=== PATIENT | female | born 1990 | race Caucasian/White ===

== ENCOUNTER 2024-03-16 16:07 | Emergency (ER) | payer BC, SELFPAY ==
[2024-03-16 16:24] VITALS: BP 155/94
[2024-03-16 18:25] VITALS: BP 119/83
[2024-03-16 18:34] LABS: % Basophils 0.5 % (0-2); % Eosinophils 0.3 % (0-6); % Immature Granulocytes 0.4 % (0-0.5); % Lymphocytes 22.8 % (20.5-51.1); % Monocytes 4.9 % (1.7-9.3); % Neutrophils 71.1 % (42.2-75.2); Absolute Basophils 0.1 10^3/uL (0-0.2); Absolute Immature Granulocytes 0.1 10^3/uL (0-0.05); Absolute Lymphocytes 2.8 10^3/uL (1.2-3.4); Absolute Monocytes 0.6 10^3/uL (0.1-0.6); Absolute Neutrophils 8.7 10^3/uL (1.4-6.5); Hematocrit 36.3 % (37.0-47.0); Hemoglobin 12.7 g/dL (12.0-16.0); Mean Corpuscular Volume 82.9 fL (81.0-99.0); Mean Platelet Volume 9.5 fL (7.4-10.4); Nucleated Red Blood Cells % 0 %; Platelet Count 351 10^3/uL (130-400); Red Blood Cell Count 4.38 10^6/uL (4.20-5.40); Red Cell Dist. Width 13.1 % (11.5-14.5); White Blood Cell Count 12.3 10^3/uL (4.8-10.8)
[2024-03-16 19:00] VITALS: BP 124/80
[2024-03-16 19:16] LABS: HCG, Serum Qualitative Screen Negative
[2024-03-16 19:19] LABS: ALT (SGPT) 17 U/L (0-35); AST (SGOT) 23 U/L (14-36); Albumin 4.2 g/dl (3.5-5.0); Alkaline Phosphatase 68 U/L (38-126); Blood Urea Nitrogen 14 mg/dl (7-17); Calcium 9.3 mg/dl (8.4-10.2); Carbon Dioxide 21 mmol/L (22-30); Chloride 108 mmol/L (98-107); Glucose 102 mg/dl (70-99); Potassium 4.4 mmol/L (3.5-5.1); Sodium 139 mmol/L (135-145); Total Bilirubin 0.5 mg/dl (0.2-1.3); Total Protein 7.3 g/dl (6.3-8.2); eGFR > 60.00
--- NOTE | 2024-03-16 20:19 | ED.GENMED ---
History of Present Illness
General
Chief Complaint: Headache
Source: patient
Exam Limitations: none
Time Seen by Provider: 03/16/24 17:53
Nursing documentation reviewed up to this point in time: agreed with
Travel History
Have you had any contact with someone who has COVID-19?: No
Do you have any symptoms of coronavirus? Fever > 100 degrees, chills, cough, shortness of breath, sore throat, loss of taste or smell, muscle aches, or headache?: No
History of Present Illness
History of Present Illness:
Patient states she had a sudden electric shock pain to right forehead followed by tingling to lips, right hand. Lasted just a few seconds and then resolved. States she now notes tingling to left thigh. Brought to ED by spouse for eval. Denies
fever/chills, recent illness. No dizziness or blurred vision.
Past History
Past History
ED Past Medical History: Asthma and GERD
ED Past Surgical History: Tonsilectomy
Social History
Tobacco: Non-smoker
Alcohol: None
Personal: Single
Living: with family
Employment: Employed
Family History
Family History: Other (NA)
Review of Systems
Review of Systems
Allergies reviewed?: Yes
All Other Systems: ROS reviewed and negative except as documented in HPI and ROS
Constitutional: Reports no symptoms
EENT: Reports no symptoms
Respiratory: Reports no symptoms
Cardiac: Reports no symptoms
ABD/GI: Reports no symptoms
: Reports no symptoms
Musculoskeletal: Reports no symptoms
Skin: Reports no symptoms
Neurological: Reports other (electric shock pain to left forhead, tingling to lips, right hand, left thigh.)
Psychiatric: Reports no symptoms
Phy Exam
General Physical Exam
General Presentation: well appearing and no apparent distress
General age: appears stated age
General Skin: warm and dry
General Habitus: normal
General Mental: alert
ENT Exam
ENT Exam: EOMI, TM's normal, pharynx normal, neck supple and normocephalic
Eye Exam
Eye Exam: PERRL, EOMI, conjunctiva normal, disc sharp and globe normal
Neurological Exam
Neurological Exam: alert, oriented x3, CN II-XII intact, no motor deficits, no sensory deficits, speech normal and normal gait
Barbara Coma Scale
Eye Opening: Spontaneous
Verbal Response: Oriented
Motor Response: Obeys Commands
GCS Total Score: 15
Mental
Mental Status: oriented to person, oriented to place, oriented to time and usual mental status
Describe Speech: normal speech
Cranial
Cranial Nerves: normal
EOM (CN3/4/6): intact
Motor
Seizure Activity: none
Gait: normal
Tremors: none
Right upper extremity: 4
Right lower extremity: 4
Left upper extremity: 4
Left lower extremity: 4
Bilateral upper extremities: 4
Bilateral lower extremities: 4
Sensory
Sensory Exam: intact
Cerebellar
Cerebellar Function: normal finger to nose and normal Romberg test
Musculoskeletal Exam
Musculoskeletal Exam: full ROM and neuro vasc intact
Skin Exam
Skin Exam: normal color, warm/dry and no rash
Psychiatric Exam
Psychiatric Exam: normal mood/affect
Course
Orders/Labs/Results
Orders:
Orders
03/16/24 18:00
Test Result ONCE
03/16/24 18:26
Complete Blood Count/With Diff Urgent
03/16/24 19:00
Comprehensive Metabolic Panel Urgent
HCG, Serum Qualitative Screen Urgent
03/16/24 19:19
CT Head W/o Iv Contrast Urgent
Comment:
Reason For Exam: pain
Abnormal Lab Results
03/16/24 03/16/24
18:26 19:00
WBC 12.3 H 10^3/uL
(4.8-10.8)
Hct 36.3 L %
(37.0-47.0)
Abs Immat Gran (auto) 0.1 H 10^3/uL
(0-0.05)
Absolute Neuts (auto) 8.7 H 10^3/uL
(1.4-6.5)
Chloride 108 H mmol/L
(98-107)
Carbon Dioxide 21 L mmol/L
(22-30)
Creatinine 0.5 L mg/dL
(0.6-1.0)
Glucose 102 H mg/dl
(70-99)
03/16/24 18:26
03/16/24 19:00
Vital Signs
Initial and Last Documented VS:
Initial Vital Signs
Temp Pulse Resp BP Pulse Ox
98.2 F 86 20 155/94 100
03/16/24 16:24 03/16/24 16:24 03/16/24 16:24 03/16/24 16:24 03/16/24 16:24
Last Documented Vital Signs
Temp Pulse Resp BP Pulse Ox
98.2 F 86 20 124/80 97
03/16/24 16:24 03/16/24 16:24 03/16/24 16:24 03/16/24 19:00 03/16/24 19:00
*Radiology
Radiology exam reviewed: radiology read reviewed
*Pulse Oximetry
Patient hypoxic: no
*Critical Care Note
Total Time (30-74mins, 75-104mins- exclusive of procedures): Not Applicable
Update Note
Update Note:
Labs, CT reviewed. No concerning findings on exam. WIll discharge home, close follow up with PCP. Given instructions on s/s to return to ED and she is agreeable to plan.
ED Attending Note
-
Portions of this chart may have been created with voice recognition software.� Occasional wrong word or��sound alike� substitutions may have occurred due to the inherent limitations of voice recognition software.
Discharge Plan
Departure
Patient Disposition: Home (Routine Discharge)
Date of Disposition: 03/16/24
Time of Disposition: 20:00
Patient with high blood pressure during this ER visit?: No
Condition: Good
Covid-19: Not Applicable
Discharge Problem:
Pain, head
Instructions: Headache, Adult (DC)
Prescriptions:
No Action
famotidine 40 MG tablet
40 mg PO DAILY
fexofenadine [Kristie] 30 MG tablet
30 mg PO DAILY
L.acidoph, paracasei,B. lactis 1 EACH capsule
1 ea PO DAILY
Referrals:
Irene Dong MD [Family Provider] - Follow up in 2-3 days
Interventions
Interventions:
*Risk Screen - Suicide Last Done: 03/16/24 18:33
*General Assessment Last Done: 03/16/24 18:33
*Neglect/Abuse Screening Last Done: 03/16/24 18:33
ED- Fall Risk Assessment Last Done: 03/16/24 18:33
*ED COVID-19 Vaccine History Last Done: 03/16/24 18:34
ED- Neurological Assessment Last Done: 03/16/24 18:33
Discharge Date and Time
Print Language: KYRGYZ
== END 2024-03-16 20:10 | disposition home or self-care (01) ==
LOC: EMR 16:07
PROVIDERS: Nurse Practitioner; EMERGENCY PHYSICIAN Emergency Medicine; FAMILY PHYSICIAN Student in an Organized Health Care Education/Training Program
DX: R51.9 Headache, unspecified (principal)
CPT/HCPCS: 99284; 70450; 80053; 84703; 85025

== ENCOUNTER 2024-07-31 17:19 | Emergency (ER) | payer BC, SELFPAY ==
[2024-07-31 17:22] VITALS: BP 213/122
[2024-07-31 17:32] VITALS: BP 164/93
[2024-07-31] MEDS: DECADRON 10 MG IV (17:44)
[2024-07-31] MEDS: PEPCID 20 MG IV (17:44)
[2024-07-31 18:00] VITALS: BP 142/86
--- NOTE | 2024-07-31 18:03 | ED.GENMED ---
History of Present Illness
General
Chief Complaint: Allergic Reaction
Time Seen by Provider: 07/31/24 17:35
History of Present Illness
History of Present Illness:
33-year-old female with history of asthma and multiple food allergies presenting for concern of multiple food allergies. Patient reports prior to arrival she went into her house and started small peanuts. She reports a peanut allergy. She did not
ingest any peanuts. She immediately to feel a discomfort in her throat. She took some Benadryl and came to the ER. She also took a puff of her albuterol. She denies any difficulty breathing. She denies any difficulty handling her secretions.
She did not have to give herself any epinephrine. She denies any chest pain or systemic rash. She denies any abdominal pain or vomiting. She reports some persistent tightness in her throat. Denies additional acute medical complaints
Past History
Past History
ED Past Medical History: Asthma and GERD
ED Past Surgical History: Tonsilectomy
Social History
Tobacco: Non-smoker
Alcohol: None
Personal: Single
Living: with family
Employment: Employed
Family History
Family History: Other (NA)
Phy Exam
Physical Exam
Physical Exam:
General: Well-appearing, no clinical signs of dehydration, nontoxic and in no acute distress
HEENT: protecting airway, no stridor, no oropharyngeal swelling
Neck: appears supple
CV: Tachycardic, regular rhythm, no evidence of cyanosis
Resp: No accessory muscle use, no increased work of breathing, lungs clear to auscultation bilaterally
Abd: Soft and non-distended, no tenderness to palpation
Extremities: No deformities, no swelling
Neuro: alert, no focal neurologic deficit
: deferred
Rectal: deferred
Psych: Normal affect
Skin: Intact
Course
Orders/Labs/Results
Orders:
Orders
07/31/24 17:42
Dexamethasone Sod Phosphate [Decadron] 10 mg IV NOW STA
Famotidine [Pepcid] 20 mg IV NOW STA
Vital Signs
Initial and Last Documented VS:
Initial Vital Signs
Temp Pulse Resp BP Pulse Ox
98.3 F 121 20 213/122 99
07/31/24 17:22 07/31/24 17:22 07/31/24 17:22 07/31/24 17:22 07/31/24 17:22
Last Documented Vital Signs
Temp Pulse Resp BP Pulse Ox
98.3 F 94 19 133/85 99
07/31/24 17:22 07/31/24 19:16 07/31/24 18:15 07/31/24 19:16 07/31/24 19:16
MDM/Problems Addressed
MDM/Problems Addressed:
33-year-old female with history of asthma and multiple food allergies presenting for concern of allergic reaction after exposure to peanuts. Vital signs on arrival significant for tachycardia, however had albuterol prior to arrival. Patient also
with hypertension, also improved without intervention.
On exam patient is in no acute distress, no respiratory distress. No airway compromise, no stridor. No oropharyngeal swelling. Suspect allergic reaction, however without concern for anaphylaxis. No present systemic symptoms. Will treat with
Decadron and Pepcid and continue to closely monitor.
19:30 - Patient remained stable after period of observation. Feel stable for discharge. Will prescribe EpiPen. Otherwise feel stable for discharge. Return precautions discussed and patient verbalized understanding
*Critical Care Note
Total Time (30-74mins, 75-104mins- exclusive of procedures): Not Applicable
ED Attending Note
-
Portions of this chart may have been created with voice recognition software.� Occasional wrong word or��sound alike� substitutions may have occurred due to the inherent limitations of voice recognition software.
Discharge Plan
Departure
Prescriptions:
No Action
famotidine 40 MG tablet
40 mg PO DAILY
fexofenadine [Kristie] 30 MG tablet
30 mg PO DAILY
Roderick paracasei,B. lactis 1 EACH capsule
1 ea PO DAILY
Referrals:
Irene Dong MD [Family Provider] -
Interventions
Interventions:
*Risk Screen - Suicide Last Done: 07/31/24 17:19
*General Assessment Last Done: 07/31/24 17:22
*Neglect/Abuse Screening Last Done: 07/31/24 17:39
ED- Fall Risk Assessment Last Done: 07/31/24 17:39
*ED COVID-19 Vaccine History Last Done: 07/31/24 17:39
ED- Cardiac Assessment Last Done: 07/31/24 17:39
ED- Pulmonary Assessment Last Done: 07/31/24 17:39
ED-Skin Assessment Last Done: 07/31/24 17:39
Discharge Date and Time
Print Language: GERMAN
[2024-07-31 19:00] VITALS: BP 133/85
[2024-07-31 19:16] VITALS: BP 133/85
[2024-07-31 19:59] VITALS: BP 131/82
== END 2024-07-31 20:13 | disposition home or self-care (01) ==
LOC: EMR 17:19
PROVIDERS: EMERGENCY PHYSICIAN Student in an Organized Health Care Education/Training Program; FAMILY PHYSICIAN Student in an Organized Health Care Education/Training Program
DX: R09.89 Other specified symptoms and signs involving the circulatory and respiratory systems (principal); R00.0 Tachycardia, unspecified; J45.909 Unspecified asthma, uncomplicated; K21.9 Gastro-esophageal reflux disease without esophagitis; I10 Essential (primary) hypertension; Z91.010 Allergy to peanuts; Z88.1 Allergy status to other antibiotic agents; Z91.018 Allergy to other foods; Z91.048 Other nonmedicinal substance allergy status
CPT/HCPCS: 99284; 96374; 96375

== ENCOUNTER → 2024-12-26 07:33 | Outpatient (REF) | payer BC, SELFPAY | LOC: HWRAD 07:33 | PROVIDERS: ATTENDING PHYSICIAN Student in an Organized Health Care Education/Training Program | DX: M79.661 Pain in right lower leg (principal); M25.571 Pain in right ankle and joints of right foot | CPT/HCPCS: 73590; 73610 ==

== ENCOUNTER 2025-08-21 06:33 | Day surgery (SDC) | payer BC, SELFPAY | END 2025-08-21 09:41 | disposition home or self-care (01) | LOC: GI 06:33 | PROVIDERS: ATTENDING PHYSICIAN Internal Medicine; FAMILY PHYSICIAN Student in an Organized Health Care Education/Training Program | DX: R10.13 Epigastric pain (principal); K22.10 Ulcer of esophagus without bleeding; K22.89 Other specified disease of esophagus; K44.9 Diaphragmatic hernia without obstruction or gangrene | CPT/HCPCS: 43239; 88305; 88342 ==